=== PATIENT | female | born 1965 | race Caucasian/White ===

== ENCOUNTER 2018-02-07 12:40 | Emergency (ER) | payer SELFPAY ==
[2018-02-07 12:46] VITALS: PULSE 92; RESP 18; TEMP 36.8; O2SAT 95; BMI 39.0
--- NOTE | 2018-02-07 13:02 | [facility].EDGENADL ---
ED Disposition Clinical Impression: Forearm laceration Qualifiers: Encounter type: initial encounter Laterality: right Qualified Code(s): S51.811A - Laceration without foreign body of right forearm, initial encounter Disposition: Home, Self-Care Condition on Discharge: Good Instructions: DI for Laceration Repair Additional Instructions: Additional instructions for LACERATION: Clean the wound daily with soap and water. You may shower. Apply a thin film of antibiotic ointment such as neosporin or triple antibiotic after showering and apply a bandage. Avoid submerging the wound, no swimming. See your primary care physician or return to the [facility] in 10 days for suture removal. The [facility] is open 9 AM to 9 PM 7 days a week. Return if any signs of infection including increasing pain, pus drainage, swelling, redness, red streaks, or fever. - Critical Care Critical Care Time: No Attestation: On 02/07/18, the high probability of a clinically significant, sudden or life threatening deterioration of the following system(s) required my full and direct attention, intervention and personal management. The time I documented below is in addition to time spent performing reported procedures but includes the following listed in this critical care notation. Medical Decision Making - Mario Alberto Inquiry Pt receiving controlled substance: No Vital Signs: 02/07/18 12:46 Temperature 98.2 F Temperature Source Oral Pulse Rate [Left Brachial] 92 H Respiratory Rate 18 02 Sat by Pulse Oximetry 95 Oxygen Delivery Method Room Air Orders (Tests/Meds): ED MEDICATIONS Discontinued Medications Generic Name Dose Route Start Last Admin Trade Name Freq PRN Reason Stop Dose Admin Lidocaine HCl 20 ml 02/07/18 12:57 Lidocaine 1% 20ml Mdv SQ 02/07/18 12:58 ONCE ONE Tetanus/Reduced Diphtheria/Acell Pertussis 0.5 ml 02/07/18 12:57 02/07/18 13:03 Adacel Tdap 0.5ml Syringe IM 02/07/18 12:58 0.5 ml .ONCE ONE Administration General Adult HPI - General Chief complaint: Wound/Laceration Stated complaint: AO 02/07/18 Lac right arm Time Seen by Provider: 02/07/18 13:02 Mode of Arrival: Family Vehicle Limitations: No Limitations Description of Symptoms (Recalled from ER Triage Doc. by RN): c/o laceration to right forearm - History of Present Illness HPI narrative: The patient says a glass bowl fell and broke into 2 pieces and sliced her on the right forearm. She says it only broke into 2 pieces, there are no missing pieces, and she denies that there can be any chance of a foreign body. She has a cut to her right forearm, no other injuries. No numbness or weakness. Tetanus status not up-to-date. - Related Data Home Medications Medication Instructions Recorded Confirmed No Known Home Medications [No 02/07/18 02/07/18 Known Home Medications] Allergies Allergy/AdvReac Type Severity Reaction Status Date / Time No Known Allergies Allergy Verified 02/07/18 12:54 [facility] History I have reviewed the patient's past medical history: Yes Medical History: Denies:: Cancer, Diabetes Mellitus Type 1, Diabetes Mellitus Type 2, MRSA Amputation: No Fractures: No - Social History Alcohol Intake: never - Psychiatric History Expresses thoughts of harming self/others: None Suicide Plan Description: No Plan ROS Obtained: Yes Systems reviewed as appropriate & no additional complaints - Integumentary/Breasts Skin/Breast: Reports as per HPI - Neurologic Neurologic: Denies numbness, Denies weakness Physical Exam - General General appearance: alert, in no apparent distress - Respiratory Respiratory exam: Absent: respiratory distress - Cardiovascular Cardiovascular exam: Present: regular rate - Expanded Upper Extremity Exam Right Comment: 3.5 centimeters Y-shaped laceration flexor aspect right forearm. Subcutaneous fat exposed. No foreign bodies
[2018-02-07 13:44] VITALS: BP 160/82; PULSE 79; RESP 16; TEMP 36.7; O2SAT 97
== END 2018-02-07 13:47 | disposition home or self-care (01) ==
PROVIDERS: Emergency Provider Emergency Medicine
DX: S51.811A Laceration without foreign body of right forearm, initial encounter (principal); Z23 Encounter for immunization; W25.XXXA Contact with sharp glass, initial encounter; Y92.019 Unspecified place in single-family (private) house as the place of occurrence of the external cause
CPT/HCPCS: 12002; 90471; 90715; 99281